=== PATIENT | female | born 1955 | race Caucasian/White ===

== ENCOUNTER 2024-02-02 17:13 | Inpatient (IN) | payer MEDICARE, BC ==
[~2024-02-02 17:13] MED LIST: ALBU90OI61 INH; AZIT250 PO; CHOL10002; FISH OIL 1,0001 EACH; IBAN2.5 PO; Multivitamin1 EAC1; PRED20 PO; SULTRISS PO; Vitamin C500 M3 PO
[2024-02-02 17:59] LABS: BASOPHILS ABSOLUTE AUTO 0.04 K/mm3 (0.00-0.23); BASOPHILS PERCENT AUTO 0 % (0-2); EOSINOPHILS ABSOLUTE AUTO 0.14 K/mm3 (0.00-0.68); EOSINOPHILS PERCENT AUTO 1 % (0-6); Hematocrit 37.6 % (33.0-51.0); Hemoglobin 12.1 g/dL (11.5-16.0); IMMATURE GRAN ABSOLUTE AUTO 0.03 K/mm3 (0.00-0.10); IMMATURE GRAN PERCENT AUTO 0 % (0-1); LYMPHOCYTES ABSOLUTE AUTO 1.56 K/mm3 (0.84-5.20); LYMPHOCYTES PERCENT AUTO 13 % (21-46); MONOCYTES ABSOLUTE AUTO 0.94 K/mm3 (0.16-1.47); MONOCYTES PERCENT AUTO 8 % (4-13); Mean Corpuscular HGB 25.8 pg (26.0-34.0); Mean Corpuscular HGB Conc 32.2 g/dL (31.5-36.5); Mean Corpuscular Volume 80 fL (80-100); Mean Platelet Volume 9.7 fL (9.1-12.4); NEUTROPHILS ABSOLUTE AUTO 9.11 K/mm3 (1.96-9.15); NEUTROPHILS PERCENT AUTO 77 % (41-73); Platelet Count 430 K/mm3 (150-400); RDW Coefficient Variation 15.6 % (11.7-14.2); RDW Standard Deviation 44.9 fL (35.1-46.3); Red Blood Cell Count 4.69 M/mm3 (3.80-5.20); White Blood Cell Count 11.82 K/mm3 (4.00-11.30)
[2024-02-02 18:28] LABS: Albumin, Blood 2.8 g/dL (3.4-5.0); Albumin/Globulin Ratio 0.5 (0.8-1.8); Bilirubin, Total 0.5 mg/dL (0.1-1.0); Calcium, Blood 8.6 mg/dL (8.5-10.1); Creatinine, Blood 0.7 mg/dL (0.40-1.00); Globulin, Blood 5.8 g/dL (2.2-4.0); Potassium, Blood 4.3 mmol/L (3.5-5.5); Total Protein, Blood 8.6 g/dL (6.4-8.2)
[2024-02-02] MEDS ORDERED: Ipratropium/Albuterol SulF 2.5-0.5MG/3 ML Amp INH ONE (21:10)
[2024-02-02] MEDS ORDERED: Acetaminophen 325 MG TABLET PO PRN (23:50)
[2024-02-02] MEDS ORDERED: Ondansetron HCl 2 MG / ML 2ML Vial IV PRN (23:50)
[2024-02-02] MEDS ORDERED: Ipratropium/Albuterol SulF 2.5-0.5MG/3 ML Amp INH PRN (23:50)
[2024-02-03] MEDS ORDERED: Azithromycin 500 MG in NS 250 ML IV SCH (01:00)
[2024-02-03] MEDS ORDERED: CefTRIAXone Sodium 1,000 MG in NS 100 ML IV SCH (01:00)
[2024-02-03] MEDS ORDERED: CefTRIAXone Sodium 1,000 MG in NS 50 ML IV ONE (01:05)
[2024-02-03] MEDS ORDERED: Azithromycin 500 MG in NS 250 ML IV ONE (01:05)
[2024-02-03] MEDS ORDERED: NS 1,000 ML IV SCH (01:45)
[2024-02-03 05:30] LABS: BASOPHILS ABSOLUTE AUTO 0.04 K/mm3 (0.00-0.23); BASOPHILS PERCENT AUTO 0 % (0-2); EOSINOPHILS ABSOLUTE AUTO 0.11 K/mm3 (0.00-0.68); EOSINOPHILS PERCENT AUTO 1 % (0-6); Hematocrit 35.1 % (33.0-51.0); Hemoglobin 11.2 g/dL (11.5-16.0); IMMATURE GRAN ABSOLUTE AUTO 0.03 K/mm3 (0.00-0.10); IMMATURE GRAN PERCENT AUTO 0 % (0-1); LYMPHOCYTES ABSOLUTE AUTO 1.25 K/mm3 (0.84-5.20); LYMPHOCYTES PERCENT AUTO 12 % (21-46); MONOCYTES ABSOLUTE AUTO 0.86 K/mm3 (0.16-1.47); MONOCYTES PERCENT AUTO 8 % (4-13); Mean Corpuscular HGB Conc 31.9 g/dL (31.5-36.5); Mean Corpuscular Volume 81 fL (80-100); Mean Platelet Volume 9.7 fL (9.1-12.4); NEUTROPHILS ABSOLUTE AUTO 8.25 K/mm3 (1.96-9.15); NEUTROPHILS PERCENT AUTO 78 % (41-73); Platelet Count 389 K/mm3 (150-400); RDW Coefficient Variation 15.6 % (11.7-14.2); RDW Standard Deviation 46.5 fL (35.1-46.3); Red Blood Cell Count 4.31 M/mm3 (3.80-5.20); White Blood Cell Count 10.54 K/mm3 (4.00-11.30)
--- NOTE | 2024-02-03 05:33 | NUR ---
T/F AND SUMMARY: REPORT RECEIVED FROM ANA MONTESINOS RN AND PT T/F TO ROOM 327 VIA [facility] AT 0107. SHE'S A/OX4, WAS ORIENTED TO ROOM AND CALL SYSTEM AND IS PLEASANT AND COOPERATIVE W/CARE. PT AWARE OF LIMITATIONS AND IS SBA OOB CURRENTLY D/T WEAKNESS AND SOB W/EXERTION. LS ARE CLEAR T/O BILAT LOBES BUT DIMINISHED TO R.SIDE. PULM CX CALLED TO ANS.SERVICE FOR NEW R.APICAL LUNG MASS W/LIKELY METASTASIS AND PLEURAL INVOLVEMENT. SHE REMAINS ON 2L O2 VIA WA D/T O2 DESATS W/EXERTION AND SPUTUM SPECIMEN WAS OBTAINED. MOIST PRODUCTIVE COUGH PERSISTS W/PINK TINGED THICK SPUTUM OBSERVED. NS INFUSES AT 75 ML/HR AND IV ABX RECEIVED. NO ACUTE CHANGES, VSS/AFEBRILE. PT REMAINS ON TELE IN NSR AT 70'S BPM. WCTM AND REPORT TO DEREK RN.
[2024-02-03 06:04] LABS: Albumin, Blood 2.5 g/dL (3.4-5.0); Albumin/Globulin Ratio 0.5 (0.8-1.8); Bilirubin, Total 0.5 mg/dL (0.1-1.0); Bun/Creatinine Ratio 19.1 (12.0-20.0); Calcium, Blood 8.2 mg/dL (8.5-10.1); Creatinine, Blood 0.58 mg/dL (0.40-1.00); Total Protein, Blood 7.5 g/dL (6.4-8.2)
[2024-02-03 07:40] VITALS: BP 102/66
[2024-02-03] MEDS ORDERED: AMOCLA875 PO (16:23)
[2024-02-03 16:45] VITALS: BP 101/60
--- NOTE | 2024-02-03 19:49 | NUR ---
DISCHARGE REVIEWED WITH PT AND DAUGHTER. IV PULLED BY AID. TELE REMOVED BY AIDE. PT VERBALIZED UNDERSTANDING MEDS AND INSTRUCT. PT WHEELED TO DOOR BY AIDE AT 1935.
== END 2024-02-03 19:35 | disposition home or self-care (01) | DRG 180 ==
LOC: ER 17:13 → MEDS 17:14
PROVIDERS: Physician Assistant; ADMIT Internal Medicine
DX: C34.11 Malignant neoplasm of upper lobe, right bronchus or lung (principal); J18.9 Pneumonia, unspecified organism; J96.01 Acute respiratory failure with hypoxia; E78.1 Pure hyperglyceridemia; F17.210 Nicotine dependence, cigarettes, uncomplicated; Z88.5 Allergy status to narcotic agent; Z98.1 Arthrodesis status
CPT/HCPCS: 36415; 70553; 71046; 71260; 80053; 83880; 85025; 87070; 87205; 93005; 93010; 94640; 94664; 94760; 94761; 99285-25; A9579; G0378; J0456; J0696; J7030; J7050; Q9967

== ENCOUNTER 2024-06-22 04:10 | Day surgery (SDC) | payer BC ==
[2024-06-19 10:45] LABS: Hematocrit 20.4 % (33.0-51.0); Hemoglobin 6.6 g/dL (11.5-16.0); Mean Corpuscular HGB 31.1 pg (26.0-34.0); Mean Corpuscular HGB Conc 32.4 g/dL (31.5-36.5); Mean Corpuscular Volume 96 fL (80-100); Mean Platelet Volume 10.3 fL (9.1-12.4); Platelet Count 164 K/mm3 (150-400); RDW Coefficient Variation 27.3 % (11.7-14.2); RDW Standard Deviation 89.1 fL (35.1-46.3); Red Blood Cell Count 2.12 M/mm3 (3.80-5.20); White Blood Cell Count 2.83 K/mm3 (4.00-11.30)
[2024-06-19 10:48] LABS: Albumin, Blood 3.1 g/dL (3.4-5.0); Albumin/Globulin Ratio 0.7 (0.8-1.8); Bilirubin, Total 0.4 mg/dL (0.1-1.0); Bun/Creatinine Ratio 38.1 (12.0-20.0); Calcium, Blood 8.9 mg/dL (8.5-10.1); Creatinine, Blood 0.47 mg/dL (0.40-1.00); Globulin, Blood 4.2 g/dL (2.2-4.0); Potassium, Blood 3.8 mmol/L (3.5-5.5); Total Protein, Blood 7.3 g/dL (6.4-8.2)
[2024-06-19 11:12] LABS: BAND PERCENT MAN 1 % (0-8); BASOPHILS ABSOLUTE MAN 0.02 K/mm3 (0.00-0.23); BASOPHILS PERCENT MAN 1 % (0-2); EOSINOPHILS ABSOLUTE MAN 0.02 K/mm3 (0.00-0.68); EOSINOPHILS PERCENT MAN 1 % (0-6); LYMPHOCYTES ABSOLUTE MAN 1.04 K/mm3 (0.84-5.20); LYMPHOCYTES PERCENT MAN 37 % (21-46); MONOCYTES ABSOLUTE MAN 0.08 K/mm3 (0.16-1.47); MONOCYTES PERCENT MAN 3 % (4-13); NEUTROPHILS ABSOLUTE MAN 1.64 K/mm3 (1.96-9.15); SEG NEUTROPHILS PERCENT MAN 57 % (41-73); TOTAL CELLS COUNTED 100
[~2024-06-22 04:10] MED LIST changes: +AMOCLA875 PO
[2024-06-22] MEDS ORDERED: NS 250 ML IV SCH (06:45)
[2024-06-22 07:54] VITALS: BP 104/52
[2024-06-22 08:15] VITALS: BP 94/50
[2024-06-22 09:18] VITALS: BP 103/53
[2024-06-22 09:43] VITALS: BP 98/60
[2024-06-22 11:05] VITALS: BP 110/59
[2024-06-22 12:02] VITALS: BP 118/65
== END 2024-06-22 11:55 | disposition home or self-care (01) ==
LOC: ATC 04:10 → LAB FUT 05-07 14:40 → EDSTATUS 05-07 14:40
PROVIDERS: Internal Medicine Hematology & Oncology
DX: D50.9 Iron deficiency anemia, unspecified (principal); C34.81 Malignant neoplasm of overlapping sites of right bronchus and lung; Z87.891 Personal history of nicotine dependence; Z88.8 Allergy status to other drugs, medicaments and biological substances
CPT/HCPCS: 36415; 36430; 80053; 82378; 85025; 86850; 86900; 86901; 86923; J7050; P9016